=== PATIENT | male | born 1965 | race Caucasian/White ===

== ENCOUNTER 2018-12-30 12:24 | Emergency (ER) | payer OTHER ==
[2018-12-30 12:31] VITALS: BP 144/86; PULSE 78; TEMP 98.3; BMI 36.9
--- NOTE | 2018-12-30 12:35 | PDOC ---
History of Present Illness - General Chief Complaint: Bite Stated Complaint: SWELLING / BEE STING Time Seen by Provider: 12/30/18 12:34 History Source: Patient Exam Limitations: No Limitations Past History - Travel Traveled outside of the country in the last 30 days: No Close contact w/someone who was outside of country & ill: No - Past Medical History Allergies/Adverse Reactions: Allergies Allergy/AdvReac Type Severity Reaction Status Date / Time No Known Allergies Allergy Verified 12/30/18 12:29 Home Medications: Ambulatory Orders No Home Medications 0 dose .ROUTE UTDICT 01/03/14 Diphenhydramine HCl [Benadryl -] 25 mg PO Q8H #21 capsule 12/30/18 Methylprednisolone [Medrol Dose Ramon] 4 mg PO ASDIR #21 tablet 12/30/18 COPD: No - Suicide/Smoking/Psychosocial Hx Smoking History: Unknown if ever smoked Have you smoked in the past 12 months: No Hx Alcohol Use: No Drug/Substance Use Hx: No Substance Use Type: Alcohol Review of Systems - Review of Systems Able to Perform ROS?: Yes Comments:: 12/30/18 13:11 CONSTITUTIONAL: Absent: fever, chills, diaphoresis, generalized weakness, malaise, loss of appetite HEENT: Absent: rhinorrhea, nasal congestion, throat pain, throat swelling, difficulty swallowing, mouth swelling, ear pain, eye pain, visual Changes CARDIOVASCULAR: Absent: chest pain, loss of consciousness, palpitations, irregular heart rate, peripheral edema RESPIRATORY: Absent: cough, shortness of breath, dyspnea with exertion, orthopnea, wheezing, stridor, hemoptysis GASTROINTESTINAL: Absent: abdominal pain, abdominal distension, nausea, vomiting, diarrhea, constipation, melena, hematochezia GENITOURINARY: Absent: dysuria, frequency, urgency, hesitancy, hematuria, flank pain, genital pain MUSCULOSKELETAL: Absent: myalgia, arthralgia, joint swelling SKIN: Present: bee sting to R forearm with swelling Absent: rash, itching, pallor HEMATOLOGIC/IMMUNOLOGIC: Absent: easy bleeding, easy bruising, lymphadenopathy, frequent infections ENDOCRINE: Absent: unexplained weight gain, unexplained weight loss, heat intolerance, cold intolerance NEUROLOGIC: Absent: headache, focal weakness or paresthesias, dizziness, unsteady gait, seizure, mental status changes, bladder or bowel incontinence PSYCHIATRIC: Absent: anxiety, depression, suicidal or homicidal ideation, hallucinations. Is the patient limited [place] proficient: No *Physical Exam - Vital Signs Last Vital Signs Temp Pulse Resp BP Pulse Ox 98.3 F 78 18 144/86 95 12/30/18 12:29 12/30/18 12:29 12/30/18 12:29 12/30/18 12:29 12/30/18 12:29 - Physical Exam Comments: 12/30/18 13:13 GENERAL: Well developed, well nourished. Awake and alert. No acute distress. HEENT: Normocephalic, atraumatic. PERRLA, EOMI. No conjunctival pallor. Sclera are non- icteric. Moist mucous membranes. Oropharynx is clear. NECK: Supple. Full ROM. No JVD. Carotid pulses 2+ and symmetric, without bruits. No thyromegaly. No lymphadenopathy. CARDIOVASCULAR: Regular rate and rhythm. No murmurs, rubs, or gallops. Distal pulses are 2+ and symmetric. PULMONARY: No evidence of respiratory distress. Lungs clear to auscultation bilaterally. No wheezing, rales or rhonchi. EXTREMITIES: No cyanosis. No clubbing. (+) edema to the R elbow and forearm No calf tenderness. SKIN: Tender, non blanching area to the R forearm and elbow. No obvious stinger present. Warm and dry. Normal capillary refill. No jaundice. NEUROLOGICAL: Alert, awake, appropriate. Cranial nerves 2-12 intact. No deficits to light touch and temperature in face, upper extremities and lower extremities. No motor deficits in the in face, upper extremities and lower extremities. Normoreflexic in the upper and lower extremities. Normal speech. Toes are down- going bilaterally. Gait is normal without ataxia. PSYCHIATRIC: Cooperative. Good eye contact. Appropriate mood and affect. Medical Decision Making - Medical Decision Making 12/30/18 13:16 the patient is a 53-year-old male who presents to the ER today with redness and swelling to his right elbow. He states he was stung by a just prior to arrival. He states that after he got stop his arm swelled up immediately. He does not have an allergy to bees that he knows of. Denies difficulty breathing , shortness of breath, wheezing, tongue itching and lip swelling. A/P: Allergic reaction to bee sting On exam patient with a erythematous patch, nonblanching to the right posterior forearm. No obvious stinger present. Patient has full range of motion. Vital signs are stable and patient is afebrile Prednisone, Benadryl and Pepcid given the ER for allergic reaction We will discharge home on a Medrol Dosepak and Benadryl. Swelling is improved at this time I discussed the physical exam findings, ancillary test results and final diagnoses with the patient. I answered all of the patient's questions. The patient was satisfied with the care received and felt comfortable with the discharge plan and treatment plan. The Patient agrees to follow up with the primary care physician/specialist within 24-72 hours. Return precautions were given. *DC/Admit/Observation/Transfer Diagnosis at time of Disposition: Bee sting reaction Qualifiers: Encounter type: initial encounter Injury intent: accidental or unintentional Qualified Code(s): T63.441A - Toxic effect of venom of bees, accidental ( unintentional), initial encounter - Discharge Dispostion Disposition: HOME Condition at time of disposition: Stable Decision to Admit order: No - Referrals Referrals: Sergio Roberts MD [Staff Physician] - - Patient Instructions Printed Discharge Instructions: DI for Insect Bites and Stings Additional Instructions: You were evaluated for a bee sting Ice the area today to help reduce swelling for 20 minute intervals Start taking the Medrol dose pack tomorrow. Follow the instructions on the package You may take Benadryl eveyr 8 hours for swelling or itching Follow up with your primary care doctor this week Return to the ER for difficulty breathing, swelling to the tongue, lip itching or if you have any changes in your symptoms - Post Discharge Activity Forms/Work/School Notes: Back to Work
[2018-12-30] MEDS ORDERED: diphenhydrAMINE HCL 25 MG CAPSULE (FP) PO ONE ×2 (12:48→12:52)
[2018-12-30] MEDS ORDERED: predniSONE 20 MG TABLET (UD) PO ONE (12:49)
[2018-12-30] MEDS ORDERED: RANITIDINE HCL 150 MG TABLET (FP) PO ONE (12:49)
[2018-12-30] MEDS ORDERED: RANITIDINE HCL 150 MG TABLET (FP) ONE (12:51)
[2018-12-30] MEDS ORDERED: predniSONE 20 MG TABLET (UD) ONE (12:52)
== END 2018-12-30 13:25 | disposition home or self-care (01) ==
LOC: JERFT 12:24
DX: T63.441A Toxic effect of venom of bees, accidental (unintentional), initial encounter (principal); Y93.9 Activity, unspecified; Y92.89 Other specified places as the place of occurrence of the external cause
CPT/HCPCS: 99281-25